=== PATIENT | male | born 1985 | race Caucasian/White ===

== ENCOUNTER 2023-09-06 13:29 | Emergency (ER) | payer BC, SELFPAY ==
[2023-09-06 13:41] VITALS: BP 137/69; PULSE 107; RESP 20; TEMP 37.1; O2SAT 100
[2023-09-06 14:50] LABS: Basophils Percent Auto 0.3 % (0.2-1.2); Eosinophils Absolute Auto 0.1 K/mm3 (0-0.3); Eosinophils Percent Auto 0.9 % (0-4.4); Hemoglobin 13.9 g/dL (14.0-18.0); Immature Granulocyte Absolute 0.03 K/mm3 (0.00-0.031); Immature Granulocyte Percent A 0.3 % (0-0.5); Lymphocytes Absolute Auto 1.56 K/mm3 (0.9-3.2); Lymphocytes Percent Auto 17.8 % (18.3-44.2); Mean Corpuscular HGB Conc 32.3 g/dl (32-36); Mean Corpuscular Hemoglobin 29.3 pg (26-34); Mean Corpuscular Volume 90.5 fl (80-100); Mean Platelet Volume 10.4 fl (7.4-10.4); Monocytes Percent Auto 10.8 % (2.6-8.5); Neutrophils Absolute Auto 6.1 K/mm3 (1.3-6.7); Neutrophils Percent Auto 69.9 % (45.5-73.1); Platelet Count Result 244 k/mm3 (150-375); Red Blood Count 4.75 M/mm3 (4.6-6.20); Red Cell Distribution Width 13.4 % (11.5-14.5); White Blood Count 8.8 K/mm3 (4.5-10.0)
[2023-09-06 15:03] LABS: Lactic Acid Reflex 1.2 mmol/L (0.7-2.0)
[2023-09-06 15:11] LABS: Alanine Aminotransferase 103 U/L (6-50); Albumin Level 4.1 g/dL (3.5-5.1); Alkaline Phosphatase 69 U/L (38-126); Anion Gap 7 mmol/L (4-12); Aspartate Amino Transferase 65 U/L (17-59); Bilirubin,Total 0.5 mg/dL (0.2-1.3); Blood Urea Nitrogen 9 mg/dL (9-20); CRP 3.4 mg/dL (<1.0); Calcium 9.2 mg/dL (8.4-10.2); Carbon Dioxide 24 mmol/L (22-30); Chloride 105 mmol/L (98-107); Estimated CRCL calculation 146 ml/min; Estimated Glomerular Filt Rate > 60; Glucose 145 mg/dL (65-110); Sodium 136 mmol/L (137-145)
[2023-09-06 15:24] LABS: Erythrocyte Sedimentation Rate 24 mm/hr (0-20)
--- NOTE | 2023-09-06 16:39 | ED.GENADULT ---
HPI - General Adult General Chief complaint: Skin/Abscess/Foreign Body Stated complaint: knee wound Time Seen by Provider: 09/06/23 13:57 History of Present Illness HPI narrative: Patient is a 30-year-old male who presents ER for evaluation of his left knee and then the skin around it. He was seen at [facility] last night for a and hand lesion superior to the patella that has been using. He has had some redness. He reports he was given clindamycin but been left AMA after an arthrocentesis was performed x2. He does not know the results. He reports he continues to have drainage from the area so he came here for 2nd opinion. Patient denies IV drug abuse currently but has history of it. Patient reports he broke his skin stepping on sticks that were in the back which truck while he was at work. He then developed an infection after that. Related Data Allergies Allergy/AdvReac Type Severity Reaction Status Date / Time aspirin AdvReac Vomiting Verified 09/06/23 13:45 Review of Systems Review of Systems: All systems reviewed & are unremarkable except as noted in HPI and below Constitutional: Constitutional: Reports no additional constitutional complaints ENT: Reports system reviewed and no additional complaints, except as documented Cardiovascular: Cardiovascular: Reports no additional cardiovascular complaints Respiratory: Respiratory: Reports no additional respiratory complaints Gastrointestinal: Gastrointestinal: Reports no additional gastrointestinal complaints Musculoskeletal: Musculoskeletal: Denies arthralgias and Reports joint swelling Integumentary/Breasts: Skin/Breast: Reports pruritus, Reports erythema, Denies rash and Reports skin ulcer Comments: Scabs the arms and legs. PMFSH Past Medical History Medical History (Updated 09/06/23 @ 17:10 by Adriano Cooper MD) Healthy adult male Social History Social History (Updated 09/06/23 @ 17:10 by Adriano Cooper MD) Substance use type: IV drugs Exam Narrative: GENERAL: Well-appearing, well-nourished, and in no acute distress. HEAD: Normocephalic, atraumatic. ENT: Mucous membranes moist. CHEST: Clear to auscultation. No respiratory distress. HEART: Tachycardic and regular. Normal peripheral pulses. EXTREMITIES: Normal range of motion. No edema. mild effusion left knee. SKIN: Warm, dry . Scabbing around the entire body including the leg/head/arms. Superior left patella there is a whitish ulcerated lesion with mild erythema around it. It is draining grade serous fluid but no [place] pus. NEURO: Alert and oriented x3. PSYCH: Normal mood and affect. Course Course Emergency Course: White blood cell count normal. Slight elevation ESR and CRP. Patient has a wound with some discolored liquid drainage but does not an abscess. Patient will be started on oral antibiotics for home. Return precautions given. Patient and significant other were anxious to leave and did not want to wait for me to received the requested documentation from [facility]. Patient is able to perform range of motion with the knee though he does have an effusion. Discussed septic joint and sometimes the symptoms and treatment. Patient would like to be with his antibiotics for couple days at home and see if he improves. Vital Signs Vital signs: Vital Signs Temperature 98.7 F 09/06/23 13:41 Pulse Rate 107 H 09/06/23 13:41 Respiratory Rate 20 09/06/23 13:41 Blood Pressure 137/69 09/06/23 13:41 Pulse Oximetry 100 09/06/23 13:41 Temperature 98.7 F 09/06/23 13:41 Pulse Rate 107 H 09/06/23 13:41 Respiratory Rate 20 09/06/23 13:41 Blood Pressure 137/69 09/06/23 13:41 Pulse Oximetry 100 09/06/23 13:41 Medical Decision Making Vital Signs Vital Signs: Vital Signs Temperature 98.7 F 09/06/23 13:41 Pulse Rate 107 H 09/06/23 13:41 Respiratory Rate 20 09/06/23 13:41 Blood Pressure 137/69 09/06/23 13:41 Pulse Oximetry
--- NOTE | 2023-09-06 16:40 | PC.NURSE ---
Updated pt that MD was awaiting records from [facility]. Informed pt that labs are normal and he can wait for papers from [facility] or be discharged home with medication.
== END 2023-09-06 17:00 | disposition home or self-care (01) ==
PROVIDERS: Emergency Provider Emergency Medicine
DX: L03.116 Cellulitis of left lower limb (principal)
CPT/HCPCS: 36415; 80053; 83605; 85025; 85652; 86140; 99283